=== PATIENT | female | born 1985 | race Caucasian/White ===

== ENCOUNTER 2018-01-16 00:19 | Observation (INO) | payer MEDICAID ==
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
[~2018-01-16] VITALS: Ht 167.6 cm; Wt 108.9 kg
[2018-01-16] VITALS (17 sets, daily range): BP systolic 120–146; BP diastolic 70–90
[~2018-01-16 00:19] MED LIST: ALBU8.5H12 IH; ASCO-182 PO; BUTA-324 PO; BUTA1CAP51 PO; CALC-515 PO; CIP500 PO; CIPR-326 PO; CIT20 PO; CITA-156 PO; CYC10 PO; DICY10CA11 PO; FLUO-202 PO; HYDR-4309 PO; HYDR473S4 PO; IBU600 PO; IBU800 PO; IBUP-1618 PO; IBUP-56 PO; IBUP600T22 PO; KET10 PO; LOR5 PO; LOR5/325 PO; NAP250 PO; NO MEDS; OXYC-865 PO; PARO-243 PO; PENI-24 PO; PER PO; POTA99TA6 PO; PRE20 PO; PROM-110 PO; [UNRECOGNIZED DRUG - OTHER]
[2018-01-16 06:25] LABS: PLATELET COUNT, AUTOMATED 283 K/uL (150-450)
[2018-01-16] MEDS ORDERED: HYDROmorphone HCL 2 MG TAB PO ONE (06:30)
[2018-01-16] MEDS ORDERED: PHENAZOPYRIDINE 200 MG TAB PO ONE (06:30)
[2018-01-16] MEDS ORDERED: LIDOCAINE/SOD BICARB 8.4% SYR ID ONE (06:30)
[2018-01-16] MEDS ORDERED: MIDAZOLAM 2 MG/2 ML VIAL IVP PRN (06:30)
[2018-01-16] MEDS ORDERED: FAMOTIDINE 20 MG TAB PO ONE (06:30)
[2018-01-16] MEDS ORDERED: CELECOXIB 200 MG CAP PO ONE (06:30)
[2018-01-16] MEDS ORDERED: NORMOSOL R SOLN(*) 1000 ML BAG 1,000 ML IV PRN (06:30)
[2018-01-16] MEDS ORDERED: cefOXitin SOD 2 GM VIAL 2 GM in NS(*) 0.9% 100 ML BAG 100 ML IVPB ONE (06:30)
[2018-01-16] MEDS ORDERED: ROPIVACAINE 0.2% 20 ML VIAL ONE ×2 (06:38→08:22)
[2018-01-16] MEDS ORDERED: HYDROmorphone HCL 2 MG/ML SDV ONE (07:46)
[2018-01-16] MEDS ORDERED: ROCURONIUM BROM 10 MG/ML 10 ML ONE (09:02)
[2018-01-16] MEDS ORDERED: ONDANSETRON 4 MG/2 ML VIAL ONE (09:02)
[2018-01-16] MEDS ORDERED: DEXAMETHASONE SOD PHOS 10MG/ML ONE (09:02)
[2018-01-16] MEDS ORDERED: PROPOFOL EMUL(*) 10MG/ML 20 ML 40 ML ONE (09:02)
[2018-01-16] MEDS ORDERED: SUCCINYLCHOL CHL 200MG/10ML VL ONE (09:02)
[2018-01-16] MEDS ORDERED: NS 0.9% IRRIGATION 1000ML PLCT IR ONE (09:30)
[2018-01-16] MEDS ORDERED: INFLUENZA VIRUS VAC 0.5 ML SYR IM ONE (11:00)
[2018-01-16] MEDS ORDERED: PROMETHAZINE 25 MG/ML 1 ML AMP IVP PRN (11:00)
[2018-01-16] MEDS ORDERED: FAMOTIDINE(*) 20MG/50ML PREMIX 50 ML IVPB PRN (11:00)
[2018-01-16] MEDS ORDERED: METOCLOPRAMIDE 10 MG/2 ML SDV IV PRN (11:00)
[2018-01-16] MEDS ORDERED: ONDANSETRON 4 MG/2 ML VIAL IV PRN (11:00)
--- NOTE | 2018-01-16 11:00 | Post Operative Note ---
Operative Note - [facility] Operative Day Date: Jan 16, 2018 Time: 09:50 Physicians Surgeon: RUPALI Marine Resource Economist: WAYLON LARSON Anesthesia: ELVIS Diagnosis Pre-Op Diagnosis: DYSMENORRHEA LOW BACK PAIN Post-Op Diagnosis: SAME ADHESIONS Procedure Findings: UT 6X5 NORMAL OVARIES BILATERALLY ADHESIONS ANTERIOR ABDOMINAL WALL ADHESIONS ANTERIOR UTERUS TO ANTERIOR WALL [id number] Procedure(s): RALH EXTENSIVE ADHESIOLYSIS BISALPINGECTOMY DX CYSTO Complications: 0 Fluids Fluids: 1500 CC NR IV Estimated Blood Loss: MINIMAL Dictated Date OP Note Dictated: Jan 16, 2018 Time OP Note Dictated: 11:05 Copies to: KIMBERLYN ZAPIEN MD, JOHN MD Jan 16, 2018 11:00
[2018-01-16] MEDS ORDERED: fentaNYL CITR 100 MCG/2 ML AMP ONE (11:14)
[2018-01-16] MEDS: ACETAMINOPHEN(*)1000 MG/100 ML 100 ML IVPB SCH ×3 (11:30→23:18)
[2018-01-16] MEDS ORDERED: OXYC-373 PO (11:58)
[2018-01-16] MEDS ORDERED: IBUP800T37 PO (11:58)
--- NOTE | 2018-01-16 11:59 | OB/GYN Discharge Summary ---
Discharge Summary Reason for Hosp/Final Diag: (1) S/P robot-assisted surgical procedure Lates Vital Signs Vital Signs Date Time Temp Pulse Resp B/P (MAP) Pulse Ox O2 Delivery O2 Flow Rate FiO2 01/16/18 11:45 85 12 100 01/16/18 06:15 97.0 120/90 (100) Room Air Weight (Pounds): 240 Result Diagram: 01/16/18 0614 Condition: Improved Discharge: Home, Self [facility]dc Meds Active Scripts Oxycodone Hcl/Acetaminophen (OXYCODONE-ACETAMINOPHEN 5-325) 1 Each Tablet, 1-2 EACH PO Q4H Y for PAIN, #30 TAB 0 Refills TAKE 1-2 TABLET NEEDED FOR PAIN - NO CLOSER THAN EVERY 4 HOURS. Prov:KIMBERLYN MENDOZA MD 01/16/18 Ibuprofen (IBUPROFEN) 800 Mg Tablet, 1 TAB PO Q8H, #30 TAB 0 Refills Take with food every 8 hours. Prov:KIMBERLYN MENDOZA MD 01/16/18 Reported Medications Ibuprofen (IBUPROFEN) 200 Mg Tablet, 3 TAB PO Q6H Y for prn, TAB 01/09/18 Follow up with: Dr. Mendoza [phone] Follow up in: 6 wks PP or PO, 2 wks PO Discharge Diet: As Tolerates Discharge Activity: Pelvic Rest Copies to: KIMBERLYN MENDOZA MD, JOHN MD Jan 16, 2018 11:59
[2018-01-16] MEDS: SIMETHICONE 80 MG CHEW CHEW SCH ×3 (13:42→21:35)
[2018-01-16] MEDS: DLR(*) 1000 ML BAG 1,000 ML IV PRN ×2 (13:43→21:35)
[2018-01-16] MEDS: HYDROmorphone HCL 2 MG TAB PO PRN ×2 (13:52→19:52)
--- NOTE | 2018-01-16 15:13 | OPERATIVE REPORT 1 ---
EVENT DATE: January 16, 2018 SURGEON: Haim Mendoza MD ANESTHESIOLOGIST: Jonathan Beasley MD ANESTHESIA: General. SECURITIES TRADER: Law Mendosa MD and Harika Alberto PA-C PREOPERATIVE DIAGNOSES 1. Dysmenorrhea. 2. Low back pain. 3. Obesity. POSTOPERATIVE DIAGNOSES 1. Dysmenorrhea. 2. Low back pain. 3. Obesity. PROCEDURE PERFORMED Robotic-assisted laparoscopic hysterectomy with extensive adhesiolysis and bilateral salpingectomy and diagnostic cystoscopy. COMPLICATIONS None. FLUIDS 1500 mL of Normosol IV. ESTIMATED BLOOD LOSS Minimal. INDICATIONS Patient is a 32-year-old female with longstanding history of dysmenorrhea and low back pain, which she reports has been worsening, occasional dyspareunia. After discussion of risks and alternatives, patient desired to proceed with robotic-assisted laparoscopic hysterectomy and bilateral salpingectomy, diastolic cystoscopy. FINDINGS Uterus 6 x 5 cm. Normal ovaries bilaterally. She had adhesions of the omentum onto the anterior abdominal wall as well as adhesions to the anterior uterus, to the anterior wall, and tubes were adhesed as well. PROCEDURE After informed consent was obtained, the patient was taken to the operating room with IV running, placed in a supine position, where general anesthesia was obtained without difficulty. She was then placed in the [facility], examined under anesthesia with the above findings. She was then prepped and draped in the usual fashion, and a Coats catheter was placed. A aide-out speculum was placed into the vagina, cervix grasped with a single tooth tenaculum. The cervix was sewn to the VCare with #0-Vicryl. The VCare was advanced into the uterine cavity, and then secured with suture. Once the VCare was in place, the remainder of the instruments were removed from the vagina. The legs were lowered. Attention was then turned to the abdomen, where 0.2 Naropin was infiltrated supraumbilically, and a skin incision made with a scalpel in the midline. The Veress needle was attempted to be placed supraumbilically, but did not get normal CO2 filling pressures. It was then placed in the umbilicus and then insufflated, and normal CO2 filling pressures were noted. After adequate insufflation was performed, an 8 mm bladeless trocar was advanced in that supraumbilical port. Intraabdominal placement was confirmed by laparoscopy. No injuries were noted at time of entry. At that point, the adhesions were noted in the anterior abdominal wall with the omentum as well as the anterior uterus to the anterior abdominal wall. The remainder of the ports were then placed after measuring to have adequate spacing. The one and two ports were placed on the patient's left with number four port on the patient's right, and the assist port on the right as well. They were all placed in a similar manner by infiltrating with 0.2 Naropin, skin incision made with a scalpel, and advancing the 8 mm bladeless trocar in the number four port and the number one and two, all under direct visualization. The 10/11 port with the assist port was then placed in the right upper quadrant under direct visualization. After all the ports were placed and the trocars were positioned adequately, the da Barak robot was then maneuvered into docking position. The number three port, which was the camera port, was then docked, and targeting was successful. The remainder of the ports were then docked, and the instruments were then placed with the ProGrasp in one, scissors in two, and the vessel sealer in four. After all the instruments were placed, Dr. Mendoza attended the console. Initially the adhesion in the midline was removed with putting traction with the ProGrasp, and then using the vessel sealer to grasp across the omental adhesion, and was then removed with the vessel sealer. Attention was then turned to removing the adhesions from the uterus to the anterior abdominal wall. There was a window on the patient's left side. This was used with the scissors and vessel sealer to dissect the uterus away from the anterior abdominal wall, findings planes and removing the adhesions down to the lower uterine segment. Attention was then turned to the patient's right tube, which was adhered to the right ovary and side wall. This adhesion was removed with the scissors. The patient had been placed in Trendelenburg positioning prior to removal of any of the adhesions. The tube was then clamped with a vessel sealer and transected away from the ovary, then the mesosalpinx, down to the cornual region of the uterus. The utero-ovarian ligament was grasped with the vessel sealer coapted and transected. The round ligament was then coapted and transected. The vessel sealer was then used to seal the broad ligament down to the lower uterine segment. The anterior and posterior leaf of the broad ligament was then . The posterior leaf was then transected down towards the right uterosacral. The adhesions had distorted the anatomy anteriorly. The guille were used to, both with blunt and sharp dissection, remove the bladder from the endocervical fascia. The uterine arteries were then identified. The ureter was away from the surgical field. The uterine arteries were sealed with the vessel sealer then transected. Attention was then turned to the patient's left, where the left tube and ovary adhesions were removed, creating more normal anatomy. The tube was then transected with the Endoshears towards the cornual region of the uterus. The utero-ovarian ligament was then sealed with the vessel sealer, and the round ligament grasped and then sealed with the vessel sealer, transecting, and the broad ligament was incised posteriorly, creating a window. The remainder of the broad ligament was then coapted and then transected with vessel sealer. The posterior leaf was then transected down towards the left uterosacral ligament. The adhesions were remove anteriorly, freeing up the bladder and dissecting off the bladder. The bladder had been retrograde filled to visualize the margins. The bladder was then drained, then dissected off the endocervical fascia with both blunt and sharp dissection. Once this had been performed, the uterine arteries were then coapted and transected with the vessel sealer, and the Endoshears were then used to dissect the pedicle away from the endocervical fascia. Attention was then turned anteriorly, where the colpotomy was performed at the 12 o'clock position, and in counter-clockwise manner was then used to transect down to where the uterine arteries were. The bipolar fenestrated grasper was able to place the vessel sealer, and the colpotomy was performed in a counter clockwise manner. The bipolar grasper was then used to grasp the remaining uterine arteries on the patient's right, and the Endoshears were then used to transect and complete the colpotomy in a counter-clockwise manner. Once this had been performed, the uterus was removed from the vagina. The vaginal cuff was then closed with the #0-Vicryl being used in an interrupted fashion on the apices on the right then the left were tied in an interrupted fashion. The V-Loc suture was then used to close the vaginal cuff in a running fashion. Irrigation was performed. There was a small bit of oozing from the right apex, which was made hemostatic with a bipolar fenestrated grasper. No further bleeding was noted. Suction irrigation was performed. The 10/11 port was closed with #0-Vicryl, and gas was allowed to escape from the abdomen. All instruments were then removed from the abdomen. The robot was then docked. The port skin incisions were closed with 4-0 Monocryl and Dermabond. Cystoscopy was performed. Bilateral ureteral jets could be observed. Inspection of the vaginal cuff revealed excellent closure. No injuries were noted at the bladder. The ureters were working. Patient was taken out of the [facility], awakened from anesthesia and taken to the recovery room in stable condition. ADELINA
[2018-01-16] MEDS ORDERED: SUGAMMADEX SOD 200 MG/2 ML SDV ONE (15:26)
--- NOTE | 2018-01-16 18:40 | OB/GYN Progress Note ---
OB Subjective Progress Notes Subjective some nausea pain controlled. GI: POS Nausea, POS Vomiting, NEG Flatus Pain: Mild OB Objective Physical Exam Vital Signs Date Time Temp Pulse Resp B/P (MAP) Pulse Ox O2 Delivery O2 Flow Rate FiO2 01/16/18 18:00 146/83 (104) 01/16/18 17:30 86 18 94 Nasal Cannula 1.0 01/16/18 13:30 98.1 Intake and Output 01/17/18 07:00 Intake Total 2300 ml Balance 2300 ml Intake Oral 100 ml IV Total 2100 ml Other 100 ml # Emeses 1 Cardiovascular: Regular Rate and Rhythm Respiratory: Clear to Auscultation Abdomen: Soft, Non-Tender, Non-Distended, Bowel Sounds Present Extremities: No Edema Result Diagram: 01/16/18 0614 Assessment and Plan Problems: (1) S/P robot-assisted surgical procedure Assessment & Plan: some nausea pain controlled. will start reglan to see if helps,stable pod 0 KIMBERLYN ZAPIEN MD Jan 16, 2018 18:39
[2018-01-16] MEDS: METOCLOPRAMIDE 10 MG/2 ML SDV IV SCH ×2 (18:51→23:18)
[2018-01-16] MEDS: CELECOXIB 200 MG CAP PO SCH (21:35)
[2018-01-16] MEDS: FAMOTIDINE 20 MG TAB PO SCH (21:35)
[2018-01-16] MEDS: DOCUSATE CALCIUM 240 MG CAP PO SCH (21:35)
[2018-01-17] MEDS: METOCLOPRAMIDE 10 MG/2 ML SDV IV SCH ×2 (03:02→06:22)
[2018-01-17 03:05] VITALS: BP 125/71
[2018-01-17] MEDS: ACETAMINOPHEN(*)1000 MG/100 ML 100 ML IVPB SCH (05:27)
[2018-01-17 07:36] LABS: PLATELET COUNT, AUTOMATED 305 K/uL (150-450)
--- NOTE | 2018-01-17 07:38 | OB/GYN Progress Note ---
OB Subjective Progress Notes Subjective Pain controlled, Tolerating diet and activity. GI: POS Flatus, NEG Nausea, NEG Vomiting Pain: Mild OB Objective Physical Exam Vital Signs Date Time Temp Pulse Resp B/P (MAP) Pulse Ox O2 Delivery O2 Flow Rate FiO2 01/17/18 03:05 98.2 82 20 125/71 (89) 94 Nasal Cannula 0.5 Cardiovascular: Regular Rate and Rhythm Respiratory: Clear to Auscultation Abdomen: Soft, Non-Tender, Non-Distended, Bowel Sounds Present Extremities: No Edema Result Diagram: 01/16/18 0614 Assessment and Plan Problems: (1) S/P robot-assisted surgical procedure Assessment & Plan: Pain controlled, Tolerating diet and activity. KIMBERLYN ZAPIEN MD Jan 17, 2018 07:38
[2018-01-17] MEDS: SIMETHICONE 80 MG CHEW CHEW SCH (09:07)
[2018-01-17] MEDS: CELECOXIB 200 MG CAP PO SCH (09:08)
[2018-01-17] MEDS: FAMOTIDINE 20 MG TAB PO SCH (09:08)
[2018-01-17] MEDS: HYDROmorphone HCL 2 MG TAB PO PRN (09:08)
[2018-01-17] MEDS: DOCUSATE CALCIUM 240 MG CAP PO SCH (09:08)
[2018-01-17 09:15] VITALS: BP 136/75
[2018-01-17] MEDS ORDERED: METOCLOPRAMIDE 10 MG/2 ML SDV IVP SCH (11:00)
[2018-01-17 12:50] VITALS: BP 145/85
== END 2018-01-17 07:56 | disposition home or self-care (01) ==
LOC: OR 00:19 → PED 12:15
PROVIDERS: ADMIT Obstetrics & Gynecology; ATTEND Obstetrics & Gynecology
DX: N94.6 Dysmenorrhea, unspecified (principal); M54.5 Low back pain; E66.9 Obesity, unspecified
CPT/HCPCS: 36415; 58571; 84703; 85025; 88307; G0378; J0131; J0330; J0694; J1100; J1170; J2250; J2405; J2550; J2704; J2765; J2795; J3010; J7050; S2900